=== PATIENT | female | born 1930 | race Caucasian/White ===

== ENCOUNTER 2017-08-15 12:24 | Day surgery (SDC) | payer OTHER ==
[2017-08-15 12:59] VITALS: BP 135/81; PULSE 93; RESP 20; TEMP 98; O2SAT 98
[2017-08-15 13:40] VITALS: BP 131/70; PULSE 96; RESP 20; TEMP 97.5; O2SAT 97
[2017-08-15] MEDS ORDERED: LIDOCAINE HCL 1% 20 ML VIAL ONE (13:49)
[2017-08-15 14:00] VITALS: BP 122/67; PULSE 96; RESP 18; O2SAT 96
--- NOTE | 2017-08-15 15:48 | RADRPT ---
EXAM DATE/TIME: 08/15/2017 12:44 [place] COMPARISON: No previous studies available for comparison. EXTERNAL COMPARISON: [facility], CT SOFT TISSUE NECK W/CONTAST, Jul 30 2017. INDICATIONS : Necrotic lymph node. MEDICAL HISTORY : Chronic obstructive pulmonary disease. SURGICAL HISTORY : Tonsillectomy. ENCOUNTER: Initial ACUITY: 2 months PAIN SCORE: 3/10 LOCATION: Right neck ORGAN: Right neck SPECIMENS: One core specimen(s) submitted for pathologic evaluation. DEVICE: 18 gauge Temno needle Post procedure scanning reveals no hematoma or other complication. The possibility does exist that the tissue obtained will be non-diagnostic. If the sample is non-cordelia gnostic a repeat biopsy or surgical biopsy may need to be performed. TECHNIQUE: 1. Ultrasound guidance for needle biopsy. 2. Needle biopsy. 3. Abscess aspiration. The risks, benefits and alternatives to the procedure were explained and verbal and written consent w as obtained. The site was prepped in sterile fashion. Full sterile technique was used, including ca p, mask, sterile gloves and gown and a large sterile sheet. Hand hygiene and 2% chlorhexidine and/or betadine/alcohol prep was utilized per protocol for cutaneous antisepsis. The skin and subcutaneous tissues were infiltrated with local anesthetic solution. Sterile gel and sterile probe cover were u tilized for ultrasound guidance. With the patient on the ultrasound table, images were obtained. The the palpable area in the right s ubmandibular region corresponds to a 4.3 x 3.5 x 2.1 cm lesion with both cystic and solid components. Therefore, a control syringe and an 18 gauge needle was sonographically guided into the fluid compon ent of the mass. A total of approximately 4 cc of purulent material was aspirated. This was sent for culture and sensitivity. An 18 gauge core biopsy was performed through the remaining solid portions o f the lesion. . The patient tolerated the procedure well and left the ultrasound suite in stable condition. CONCLUSION: Uncomplicated ultrasound guided abscess aspiration and core needle biopsy as above. Farzad Haque MD on August 15, 2017 at 15:44 Board Certified Radiologist. This report was verified electronically.
== END 2017-08-15 14:15 | disposition home or self-care (01) ==
LOC: HRAD 12:24 → HRIP 12:29 → HRAD 14:15
PROVIDERS: ATTEND Otolaryngology Otolaryngology/Facial Plastic Surgery
DX: R22.1 Localized swelling, mass and lump, neck (principal); J44.9 Chronic obstructive pulmonary disease, unspecified
CPT/HCPCS: 38505; 76942; 87015; 87070; 87102; 87116; 87205; 87206; 88305; 88307; 88341; 88342

== ENCOUNTER 2017-09-06 11:11 | Emergency (ER) | payer OTHER ==
[2017-09-06 11:17] VITALS: BP 139/66; PULSE 99; RESP 18; TEMP 97.8; O2SAT 94
[2017-09-06] MEDS ORDERED: VENTAER INH (11:27)
[2017-09-06] MEDS ORDERED: LATA0.002 LEFT EYE (11:27)
[2017-09-06] MEDS ORDERED: ALBU.5I NEB (11:27)
[2017-09-06] MEDS ORDERED: ONDANSETRON HCL 4 MG/2 ML VIAL IV PUSH ONE (12:15)
[2017-09-06] MEDS ORDERED: RESP: ALBUTEROL 2.5 MG/IPRATROPIUM 0.5 MG NEB (SCH) NEB ONE (12:15)
[2017-09-06] MEDS ORDERED: MORPHINE SULFATE 2 MG/ML INJ IV PUSH ONE (12:15)
[2017-09-06] MEDS ORDERED: diphenhydrAMINE HCL 50 MG/ML VIAL IV PUSH ONE (12:15)
--- NOTE | 2017-09-06 12:27 | PD ---
HPI Chief Complaint: Psychiatric Symptoms Time Seen by Provider: 11:17 Travel History International Travel<30 days: No Contact w/Intl Traveler<30days: No Traveled to known affect area: No History of Present Illness HPI The patient is a 86-year-old female who presents to the emergency department via EMS as a Ocasio act. According to the police affidavit the patient states she wants to end her life by taking pills. The patient states she has a history of stage IV throat carcinoma with metastasis. The patient did not undergo chemotherapy or radiation therapy secondary to the extent of disease. The patient is currently on home hospice with [facility] for her stage IV carcinoma. The patient states she lives in pain secondary to the metastasis and that her home medications including liquid morphine are not controlling the pain. The patient states occasionally she has thoughts of ending it all secondary to the pain, however, states she is Lutheran would never actually attempted to kill herself. She denies any suicidal plan. The patient states she just wants her pain controlled. The hospice nurse was with the patient at bedside, has talked to the hospice physician who will change the patient's medications. She denies current suicidal ideation or plan. PFSH Past Medical History Atrial Fibrillation: Yes Cancer: Yes (THROAT CANCER THAT SPREAD PER PATIENT ) ?: Not Past Surgical History Surgical History: No Previous Surgery Social History Alcohol Use: No Tobacco Use: No Substance Use: No Allergies-Medications (Allergen,Severity, Reaction): Coded Allergies: ciprofloxacin (Verified Allergy, Unknown, 09/06/17) levofloxacin (Verified Allergy, Unknown, 09/06/17) Reported Meds & Prescriptions Reported Meds & Active Scripts Active Reported Ventolin Hfa 18 GM Inh (Albuterol Sulfate) 90 Mcg/Act Aer 2 Puff INH Q4-6H PRN Latanoprost Opth Drops (Latanoprost) 0.005% Drops 1 Drop LEFT EYE HS Refrigerate until opened. Albuterol Neb (Albuterol Sulfate) 2.5 Mg/0.5 Ml Neb 2.5 Mg NEB Q6HR NEB PRN Note: The Albuterol Sulfate Inhalation Solution is concentrated and must be diluted. Read complete instructions carefully before using. Review of Systems Except as stated in HPI: all other systems reviewed are Neg Respiratory: Positive: Shortness of Breath (chronic shortness of breath) Musculoskeletal: Positive: Pain (chronic pain everywhere) Psychiatric: Positive: Suicidal Ideations (thoughts of just ending it all so she would no longer be in pain, denies actual suicide attempt and states she would never kill herself secondary to her sikh is a Lutheran), No: Substance Abuse, Homicidal Ideation Physical Exam Narrative GENERAL: Awake, alert, pleasant 86 year-old female who appears her stated age and is slightly cachectic. SKIN: Focused skin assessment warm/dry. Large skin tag on the right thoracic wall. HEAD: Atraumatic. Normocephalic. EYES: Pupils equal and round. No scleral icterus. No injection or drainage. ENT: No nasal bleeding or discharge. Oropharynx reveals a mass in the posterior oropharynx. NECK: Trachea midline. No JVD. CARDIOVASCULAR: Regular rate and rhythm. No murmur appreciated. RESPIRATORY: No accessory muscle use. Diminished breath sounds in the bases with a few scattered wheezes. GASTROINTESTINAL: Abdomen soft, non-tender, nondistended. No rebound tenderness. MUSCULOSKELETAL: No obvious deformities. No clubbing. No cyanosis. No edema. NEUROLOGICAL: Awake and alert. No obvious cranial nerve deficits. Motor grossly within normal limits. Normal speech. Nonfocal. PSYCHIATRIC: Appropriate mood and affect; insight and judgment normal. Data Data Last Documented VS Vital Signs Date Time Temp Pulse Resp B/P (MAP) Pulse Ox O2 Delivery O2 Flow Rate FiO2 09/06/17 11:17 97.8 99 18 139/66 (90) 94 Orders Orders Morphine Inj (Morphine Inj) (09/06/17 12:15) Ondansetron Inj (Zofran Inj) (09/06/17 12:15) Albuterol-Ipratropium Neb (Duoneb Neb) (09/06/17 12:15) Diphenhydramine Inj (Benadryl Inj) (09/06/17 12:15) [facility] Medical Decision Making Medical Screen Exam Complete: Yes Emergency Medical Condition: Yes Medical Record Reviewed: Yes Differential Diagnosis Differential diagnosis includes stage IV cancer with metastasis, depressive disorder NOS, adjustment reaction, stress reaction, dysthymia. Narrative Course The patient states she has thoughts of ending it all in order to control her pain, but denies an actual suicide plan. The patient states she would like her chronic pain controlled, that is secondary to her throat cancer with metastasis. The patient states she is Lutheran of an erection harm herself, denies an actual suicidal plan or attempt. The hospice nurses at bedside with the patient, I had a discussion with the patient regarding psychiatric evaluation versus pain control and discharge him with hospice. The hospice nurse states she will be in contact with the hospice physician in regards to change the patient's medications, possibly adding a fentanyl patch with breakthrough pain medication. The patient states she does not actually want to kill her self, simply states she wants to be out of pain secondary to her cancer pain. I think it is reasonable to let the Ocasio act, control the patient 's pain, and discharge her home with hospice at bedside. The patient is comfortable with this plan of care and disposition. The Ocasio act was lifted. Diagnosis Primary Impression: Cancer associated pain Patient Instructions: General Instructions Additional Instructions: Cancer pain hospice at bedside for pain control. Return if symptoms worsen or progress. Disposition: 01 DISCHARGE HOME Condition: Stable Cecilio Taylor MD Sep 06, 2017 12:27
[2017-09-06 12:51] VITALS: BP 115/57; PULSE 86; RESP 15; O2SAT 96
[2017-09-06] MEDS ORDERED: HYDROmorphone HCL PF 2 MG/ML VIAL IV PUSH ONE (13:00)
[2017-09-06 13:43] VITALS: BP 116/58
== END 2017-09-06 14:51 | disposition home or self-care (01) ==
LOC: NEPD 11:11
DX: G89.3 Neoplasm related pain (acute) (chronic) (principal); C14.0 Malignant neoplasm of pharynx, unspecified; R06.02 Shortness of breath; I48.91 Unspecified atrial fibrillation; Z79.51 Long term (current) use of inhaled steroids; Z79.899 Other long term (current) drug therapy; Z88.1 Allergy status to other antibiotic agents; Z88.8 Allergy status to other drugs, medicaments and biological substances
CPT/HCPCS: 96374; 96375; 99284; J1170; J1200; J2270; J2405